=== PATIENT | female | born 1975 | race Caucasian/White ===

== ENCOUNTER 2016-08-26 07:00 | Day surgery (SDC) | payer BC ==
[~2016-08-26] VITALS: Ht 175.3 cm; Wt 154.2 kg
[2016-08-26] VITALS (8 sets, daily range): BP systolic 102–126; BP diastolic 76–103
[~2016-08-26 07:00] MED LIST: ACHYD1T PO; AMLO1TAB65 PO; AMLO5TAB2 PO; ASP325T PO; DCS100C PO; DILT240C PO; FERR-57 PO; GFN600TCR; IBP800T PO; LEVO500T69 PO; METO-333 PO; METO100T2 PO; MTF500T PO; MTP25TSR PO; MTP50T PO; PANT40TA PO; WRF10T PO; WRF5T PO; sprintec; stool softner
[2016-08-26] MEDS ORDERED: NS IV 1000 ML 1,000 ML ONE (07:13)
[2016-08-26] MEDS ORDERED: LIDOCAINE 2% VISCOUS 15 ML UDC ONE (07:13)
[2016-08-26] MEDS ORDERED: NS IV 1000 ML 1,000 ML IV SCH ×2 (07:27→07:30)
[2016-08-26 07:42] LABS: MEAN PLATELET VOLUME 11.7 FL (7.4-10.4); RED BLOOD COUNT 5.36 10^6/uL (4.35-5.85); RED CELL DISTRIBUTION WIDTH 14.7 % (10.0-14.5); WHITE BLOOD COUNT 10.2 10^3/uL (4.3-11.0)
[2016-08-26 07:55] LABS: INR 1.2 (0.8-1.4); PROTHROMBIN TIME PATIENT 14.4 SEC (12.2-14.7)
[2016-08-26] MEDS ORDERED: MIDAZOLAM 5 MG/5 ML (VERSED) VIAL ONE (08:00)
[2016-08-26] MEDS ORDERED: fentaNYL INJECTION 100 MCG/2 ML AMP ONE (08:00)
[2016-08-26] MEDS ORDERED: proPOfol 200 MG/20 ML (DIPRIVAN) VIAL IV ONE (08:00)
[2016-08-26 08:06] LABS: ALANINE AMINOTRANSFERASE 19 U/L (0-55); ALBUMIN 4.1 G/DL (3.2-4.5); ANION GAP 10 MMOL/L (5-14); ASPARTATE AMINO TRANSFERASE 15 U/L (5-34); BILIRUBIN,TOTAL 0.5 MG/DL (0.1-1.0); BLOOD UREA NITROGEN 14 MG/DL (7-18); BUN/CREATININE RATIO 16; CALCIUM 9.4 MG/DL (8.5-10.1); CARBON DIOXIDE 25 MMOL/L (21-32); CHLORIDE 104 MMOL/L (98-107); CHOLESTEROL 176 MG/DL (< 200); CREATININE SERUM 0.88 MG/DL (0.60-1.30); DIRECT LDL 134 MG/DL (1-129); GFR ESTIMATED > 60; GLUCOSE 108 MG/DL (70-105); SODIUM 139 MMOL/L (135-145); TRIGLYCERIDES 135 MG/DL (<150); VLDL CHOLESTEROL 27 MG/DL (5-40)
[2016-08-26] MEDS ORDERED: AMLO10TA2 PO (08:11)
[2016-08-26] MEDS ORDERED: BENA20TA2 PO (08:11)
[2016-08-26] MEDS ORDERED: APIX5TAB PO (08:11)
[2016-08-26] MEDS ORDERED: LEVO50TA6 PO (08:11)
[2016-08-26] MEDS ORDERED: RANI150T90 PO (08:11)
[2016-08-26] MEDS ORDERED: METO100T2 PO (08:11)
[2016-08-26] MEDS ORDERED: SPIR50TA PO (08:11)
[2016-08-26] MEDS ORDERED: ESTR1PAT74 TD (08:11)
[2016-08-26] MEDS ORDERED: CHOL20003 PO (08:17)
--- NOTE | 2016-08-26 08:18 | Diagnostic Imaging Report ---
Portable upright radiograph of the chest. INDICATION: A. fib and hypertension. FINDINGS: The heart size is mildly enlarged. The lungs demonstrate minimal bibasilar opacities likely related to atelectasis. There is no effusion or pneumothorax. The mediastinum and lenin appear unremarkable. IMPRESSION: Cardiomegaly. Minimal bibasilar opacities are likely atelectasis related. Dictated by: Dictated on workstation # [id number]
--- NOTE | 2016-08-26 08:35 | Cardiac Procedure Note-CS/ASA ---
Pre-Procedure Note Pre-Op Procedure Note H&P Reviewed The H&P was reviewed, patient examined and no changes noted. Date H&P Reviewed: August 26, 2016 Time H&P Reviewed: 08:35 Conscious Sedation Pre-Proced Time Reviewed: 08:35 ASA Class: 3 Airway Mallampati Classification: ([place] appropriate class) I. II. III, IV Lungs Heart ASA score ASA 1: a normal healthy patient ASA 2: a patient with a mild systemic disease (mid diabetes, controlled hypertension, obesity x ASA 3: a patient with a severe systemic disease that limits activity (angina , COPD, prior Myocardial infarction) ASA 4: a patient with an incapacitating disease that is a constant threat to life (CHF, renal failure) ASA 5: a moribund patient not expected to survive 24 hrs. (ruptured aneurysm) ASA 6: a declared brain patient whose organs are being harvested. For emergent operations, add the letter E after the classification Grade 3 Sedation Plan: Analgesia, Amnesia, Plan communicated to team members, Discussed options with patient/fam, Discussed risks with patient/fam Note The patient is an appropriate candidate to undergo the planned procedure, sedation, and anesthesia. The patient immediately re-assessed prior to indication. JOAN WHELAN MD August 26, 2016 08:35
[2016-08-26] MEDS ORDERED: amLODIPine 10 MG (NORVASC) TAB PO SCH (09:00)
[2016-08-26] MEDS ORDERED: LEVOTHYROXINE 50 MCG (LEVOTHROID) TAB PO SCH (09:00)
[2016-08-26] MEDS ORDERED: meTOprolol TARTRATE 50 MG (LOPRESSOR) TAB PO SCH (09:00)
[2016-08-26] MEDS ORDERED: BENAZEPRIL 20 MG (LOTENSIN) TAB PO SCH (09:00)
[2016-08-26] MEDS ORDERED: VITAMIN D3 1,000 UNITS (CHOLECALCIFEROL) TABLET PO SCH (09:00)
[2016-08-26] MEDS ORDERED: SPIRONOLACTONE 25 MG (ALDACTONE) TAB PO SCH (09:00)
--- NOTE | 2016-08-26 09:04 | Progress Note-Standard ---
Standard Progress Note Progress Notes/Assess & Plan Progress/Assessment & Plan Called to [facility] for assistance in sedation of a KAMRYN/Cardioversion. Brief history obtained from patient, chart reviewed, history from RN as well. to procedure room. Sedation started with versed 2mg. Propofol used throughout the procedure, with a total of 120mg used. Patient maintained spontaneous ventilation throughout the procedure. Care to [facility] RN READING,RYANN Cain CRNA August 26, 2016 09:04
[2016-08-26] MEDS ORDERED: APIXABAN 5 MG (ELIQUIS) TABLET PO SCH (21:00)
[2016-08-26] MEDS ORDERED: FAMOTIDINE 20 MG (PEPCID) TABLET PO SCH (21:00)
--- NOTE | 2016-08-31 10:52 | TEE REPORT ---
DATE OF SERVICE: 08/26/2016 TRANSESOPHAGEAL ECHOCARDIOGRAM WITH ELECTRICAL CARDIOVERSION REFERRING PHYSICIAN: Dr. North BRIEF HISTORY: The patient is a 41-year-old lady diagnosed with atrial fibrillation, has been on Eliquis. She was scheduled for KAMRYN with electrical cardioversion. PROCEDURE NOTE: After explaining the procedure to the patient, all pros and cons were explained, all questions were answered. The patient signed the consent, then she was placed on the left lateral decubitus position, oropharynx was anesthetized with lidocaine. Conscious sedation achieved with the assistance of anesthesia, Omniplane probe was introduced through the mouth to the esophagus, then to the stomach, multiple views were obtained. At the end of the procedure, Omniplane probe was removed. No complication noted. FINDINGS: 1. The left ventricle appeared to be in normal size, the patient was at heart rate 150, systolic function appeared to be reduced. After the cardioversion, the LV function was reevaluated and her ejection fraction was 50%. 2. The left atrium is dilated with smoke in the left atrium. Left atrial appendage is dilated, smoke in the left atrial appendage. No clot or thrombus were seen. 3. The right atrium is dilated, right ventricle is normal in size. 4. Interatrial septum was evaluated using both color Doppler flow and agitated saline. There is no shunt noted. 5. Mitral valve is normal in morphology with mild mitral regurgitation. No mitral valve prolapse or stenosis. 6. Aortic valve is trileaflet with normal opening and closing pattern, no significant aortic valve stenosis or regurgitation. 7. Tricuspid valve is normal in morphology with mild tricuspid regurgitation. 8. Pulmonic valve is normal in morphology. 9. Main pulmonary artery and pulmonary artery bifurcation appeared normal. 10. Aortic root, portion of the aortic arch and descending aorta appeared normal. IN CONCLUSION: 1. Normal left ventricular size, systolic function was reduced due to the atrial fibrillation. While her heart rate was 150, it was reevaluated after the cardioversion and her EF was back to 50%. 2. Biatrial dilatation with smoke in the left atrium. No clot or thrombus. 3. Mild mitral and tricuspid regurgitation. ELECTRICAL CARDIOVERSION REPORT: The patient received DC cardioversion at 200 joules. She was sedated with anesthesia. Sucessful cardioversion, converted to sinus rhythm and maintained sinus rhythm. IN CONCLUSION: Successful electrical cardioversion with no complication. DISCUSSION AND RECOMMENDATION: The patient was maintained on metoprolol 150 mg twice daily. She has been scheduled for evaluation for sleep apnea. Continue with her current medications at this time. FINAL DIAGNOSES: 1. Atrial fibrillation. 2. Hypertension. 3. Hyperlipidemia. 4. Sleep apnea. Job ID: [id number] DocumentID: [id number] Dictated Date: 08/26/2016 09:05:54 Administrative Library Assistant Date: 08/26/2016 11:39:28 Dictated By: JOAN WHELAN MD
--- NOTE | 2016-08-31 10:59 | DISCHARGE SUMMARY ---
DATE OF SERVICE: 08/26/2016 FINAL DIAGNOSES: 1. Atrial fibrillation. 2. Hypertension. 3. Hyperlipidemia. 4. Sleep apnea. Job ID: [id number] DocumentID: [id number] Dictated Date: 08/26/2016 09:05:54 Spot Billing Clerk Date: 08/26/2016 11:42:21 Dictated By: JONA WHELAN MD
== END 2016-08-26 13:44 | disposition home or self-care (01) ==
LOC: CATH 07:00 → ICU 09:00 → ENPENDDIS 13:00 → CATH 13:44
PROVIDERS: ATTEND Internal Medicine Cardiovascular Disease
DX: I48.91 Unspecified atrial fibrillation (principal); I10 Essential (primary) hypertension; E03.9 Hypothyroidism, unspecified; Z79.01 Long term (current) use of anticoagulants; Z79.899 Other long term (current) drug therapy; Z82.3 Family history of stroke
CPT/HCPCS: 36415; 71010; 80053; 80061; 85027; 85610; 85730; 87081; 92960; 93005; 93312; 93320; 93325

== ENCOUNTER 2016-09-15 19:49 | Outpatient (CLI) | payer BC ==
[~2016-09-15 19:49] MED LIST changes: +AMLO10TA2 PO; +APIX5TAB PO; +BENA20TA2 PO; +CHOL20003 PO; +ESTR1PAT74 TD; +LEVO50TA6 PO; +RANI150T90 PO; +SPIR50TA PO
== END 2016-09-16 05:40 | disposition home or self-care (01) ==
LOC: SLEEP 19:49
PROVIDERS: ATTEND Internal Medicine Cardiovascular Disease
DX: G47.33 Obstructive sleep apnea (adult) (pediatric) (principal); R06.83 Snoring; I10 Essential (primary) hypertension
CPT/HCPCS: 95811